=== PATIENT | male | born 1970 | race African-American/Black ===

== ENCOUNTER 2024-11-26 10:16 | Emergency (ER) | payer OTHER ==
[~2024-11-26] VITALS: Ht 190.5 cm; Wt 90.0 kg
[2024-11-26 10:19] VITALS: O2SAT 100
[2024-11-26 11:18] LABS: BASOPHILS % 0.3 % (0.0-2.0); EOSINOPHILS % 0.6 % (0.0-5.0); HEMATOCRIT. 45.3 % (42.0-52.0); HEMOGLOBIN. 15.0 g/dL (14.0-18.0); LYMPHOCYTES % 18.8 % (20.0-50.0); MEAN PLATELET VOLUME 8.5 fl (7.4-10.4); MONOCYTES % 6.3 % (2.0-8.0); NEUTROPHILS % 74.0 % (40.0-76.0); PLATELET 159 x1000/uL (130-400); RED BLOOD CELL COUNT 5.10 mill/uL (4.7-6.1); RED CELL DISTRIBUTION WIDTH 13.2 % (11.6-14.6)
[2024-11-26 11:40] LABS: CREATININE 1.4 mg/dL (0.6-1.3); UREA NITROGEN BLOOD 10 mg/dL (9-23)
[2024-11-26 11:41] LABS: TROPONIN I HIGH SENSITIVITY < 4 ng/L (3.0-53)
[2024-11-26 12:20] VITALS: BP 164/89; PULSE 85; RESP 12; TEMP 36.9; O2SAT 100
[2024-11-26] MEDS ORDERED: ACETAMINOPHEN 325MG TABLET PO PRN ×2 (15:30→15:45)
[2024-11-26] MEDS ORDERED: ONDANSETRON HCL 4MG/2ML INJ IV PRN (15:30)
[2024-11-26] MEDS ORDERED: AMLODIPINE 10MG TABLET PO SCH (16:00)
== END 2024-11-26 14:05 | disposition left against medical advice (07) ==
LOC: ER 10:16
DX: R55 Syncope and collapse (principal)
CPT/HCPCS: 36415; 71045; 80048; 84484; 85025; 93005; 99285